=== PATIENT | female | born 1990 | race Caucasian/White ===

== ENCOUNTER → 2020-07-06 17:40 | Outpatient (BNVA) | payer SELFPAY | PROVIDERS: Visit Provider Nurse Practitioner Family | DX: M54.9 Dorsalgia, unspecified (principal); R10.31 Right lower quadrant pain | CPT/HCPCS: 81000 ==

== ENCOUNTER 2021-10-04 06:00 | Outpatient (RCR) | payer OTHER, MEDICAID, SELFPAY | END 2021-10-29 23:59 | disposition home or self-care (01) | LOC: MPT 06:00 | PROVIDERS: Visit Provider Family Medicine | DX: M99.05 Segmental and somatic dysfunction of pelvic region (principal) | CPT/HCPCS: 97110; 97140; 97161; 97530 ==

== ENCOUNTER 2022-01-24 09:36 | Outpatient (CLI) | payer OTHER, SELFPAY ==
--- NOTE | 2022-01-24 09:30 | MR_ITS ---
WS: [id number] MRI LUMBAR SPINE NONCONTRAST TECHNIQUE: Sagittal T1, T2 and STIR imaging. Axial T1 and T2 imaging. CLINICAL INFORMATION: M54.9 - Dorsalgia, unspecified COMPARISON: None. FINDINGS: Mild lumbar curve. No acute compression. No high-grade central canal stenosis. L1-L2: Normal. L2-L3: Normal. L3-L4: Mild annular bulging. Slight effacement of ventral thecal sac. Mild narrowing of the subarticu lar recess bilaterally. Mild facet arthropathy. Mild LEFT foraminal narrowing. L4-L5: Mild annular bulging with slight effacement of ventral thecal sac. Slight narrowing of the LEF T subarticular recess. Mild facet arthropathy. Spinal canal is patent. Mild LEFT greater than RIGHT f oraminal narrowing. L5-S1: Mild disc bulging with osteophytic ridging. Slight effacement of ventral thecal sac. Foramen a re patent. Mild facet arthropathy. Visualized pelvic bony structures: Normal. Paravertebral soft tissues: Normal. MR/MR lumbar spine wo con* [id number] IMPRESSION: 1. Mild lumbar curve. No acute compression. No high-grade central canal stenos is. 2. Mild facet arthropathy L3-L5. 3. Narrowing of the Subarticular recess bilaterally L3-L4 and LEFT L4-L5. Encr oachment on the traversing bilateral L4 and LEFT L5 nerve roots respectively. 4. Mild bilateral L4-L5 foraminal narrowing. 5. No other significant findings.
--- NOTE | 2022-01-24 11:45 | MR_ITS ---
WS: [id number] MRI HEAD WITHOUT CONTRAST TECHNIQUE: Sagittal T1, T2 axial, T2 axial FLAIR, axial and coronal T1 images, axial susceptibility w eighted imaging, axial diffusion weighted images, and coronal T2 images were obtained. CLINICAL INFORMATION: D49.6 - Neoplasm of unspecified behavior of brain COMPARISON: None. FINDINGS: No evidence of restricted diffusion to suggest acute ischemia. T2 hyperintense lesion in the RIGHT mi ddle cerebellar peduncle involving the RIGHT aspect of the baldev and brainstem. This extends into the RIGHT cerebellopontine angle. This measures approximately 1.7 x 1.6 x 1.9 cm AP by transverse by cran iocaudal. Mild localized mass effect. 4th ventricle remains patent. Contrast not administered. No marina dence of restricted diffusion within the mass lesion. Increased signal on ADC. No hemosiderin on susceptibly weighted images. Normal optic chiasm and pituitary infundibulum. Tempor al lobes and hippocampal formations are normal in appearance. Moderate mucosal thickening RIGHT maxil fay sinus. Paranasal sinuses are otherwise well aerated. Mastoid air cells are well aerated. Normal vascular flow voids at the skull base. MR/MR head wo con* [id number] IMPRESSION: 1. T2 hyperintense lesion measures approximately 1.7 x 1.6 x 1.9 cm involving the RIGHT middle cerebellar peduncle with involvement of the baldev and brainstem . Gadolinium not administered today. 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 However, demyelinating d isease such as tumefactive MS is an additional consideration and should be excl uded. Recommend follow-up with gadolinium. 2. No other suspicious intracranial signal abnormalities. 3. No hydrocephalus. 4th ventricle is patent. 4. No hemosiderin on susceptibly weighted images. 5. Moderate mucosal thickening RIGHT maxillary sinus.
== END 2022-01-24 09:37 | disposition home or self-care (01) ==
PROVIDERS: PCP Family Medicine; Visit Provider Family Medicine
DX: M54.50 Low back pain, unspecified (principal); R20.0 Anesthesia of skin; D49.6 Neoplasm of unspecified behavior of brain; M47.816 Spondylosis without myelopathy or radiculopathy, lumbar region
CPT/HCPCS: 70551; 72148

== ENCOUNTER → 2022-02-01 13:35 | Outpatient (BNVA) | payer OTHER, SELFPAY | PROVIDERS: PCP Family Medicine; Referring Provider Nurse Practitioner Family; Visit Provider Physician Assistant | DX: M54.50 Low back pain, unspecified (principal); M47.897 Other spondylosis, lumbosacral region; M77.9 Enthesopathy, unspecified; M47.818 Spondylosis without myelopathy or radiculopathy, sacral and sacrococcygeal region | CPT/HCPCS: 72110; 99204 ==

== ENCOUNTER → 2022-02-28 10:15 | Outpatient (BNVA) | payer OTHER, MEDICAID, SELFPAY | PROVIDERS: PCP Family Medicine; Visit Provider Family Medicine | DX: M54.2 Cervicalgia (principal); G89.29 Other chronic pain; M47.818 Spondylosis without myelopathy or radiculopathy, sacral and sacrococcygeal region; Z13.1 Encounter for screening for diabetes mellitus | CPT/HCPCS: 72040; 80053; 85025; 85651; 86038; 86140 ==

== ENCOUNTER 2022-03-25 16:58 | Emergency (ER) | payer OTHER, MEDICAID, SELFPAY ==
[2022-03-25 17:22] VITALS: BP 134/93; PULSE 84; RESP 15; TEMP 37; O2SAT 98; BMI 29.0
--- NOTE | 2022-03-25 17:36 | W.ED.GENADLT ---
HPI - General Adult General: Chief complaint: General Medical Stated complaint: Tongue/throat numbness, speech problem Time Seen by Provider: 03/25/22 17:31 History of Present Illness: Patient is a 32-year-old female with prior history unilateral facial palsy, prior brainstem tumor during presenting to the emergency room with sudden onset of right-sided facial palsy and slurring of speech today. In addition, patient reports no numbness for the last 2-month. Patient went to see an ENT provider 2-month ago however she tells me that the doctors could not figure out with wrong with her. Patient denies any focal weakness in the arms or legs, diplopia, amaurosis fugax, any history of autoimmune diseases. Patient tells me that she had a prior brainstem tumor from previous that resolved after the . Denies any drooling, respiratory distress, difficulty breathing difficulty eating, or other complaints at this time. Onset:1 day Duration:ongoing Location: home Severity:mild/moderate Associated symptoms: Deny chest pain, dyspnea, nausea, rash, palpitations or vomiting Review of Systems Const: Denies: fever(s) or chills Eyes: Denies: change in vision ENMT: Denies: mouth pain Card: Denies: chest pain or palpitations Resp: Denies: dyspnea or non-productive cough GI: Denies: abdominal pain, nausea, vomiting or diarrhea : Denies: dysuria Musc: Denies: extremity pain Skin/Breast: Denies: rash or new lesions Neuro: Reports: other (+R sided facial droop and slurring of speech); Denies: weakness in extremities Psych: Reports: other (Normal mood) Edilson/Lymph: Denies: easy bruising [facility] ED PFSH: Medical History (Updated 03/25/22 @ 18:31 by Natacha López MD) Facial palsy Social History Smoking and tobacco status: former smoker Alcohol intake: never Female Reproductive History: Date of last menstrual period: 06/22/20 Spontaneous abortions: No Physical Exam Const: COMMON NORMALS: alert HENMT: COMMON NORMALS: atraumatic HEAD & SCALP: atraumatic MOUTH: moist mucous membranes not abnormal Eye: COMMON NORMALS: EOMs intact bilaterally and conjunctivae normal CONJUNCTIVA: Yes conjunctivae normal Neck/C-Spine: COMMON NORMALS: full ROM and supple Resp: COMMON NORMALS: normal respiratory effort and clear to auscultation bilaterally AUSCULTATION: clear to auscultation bilaterally Cardio: COMMON NORMALS: regular rate RATE: regular rate GI: COMMON NORMALS: Soft to palpation and non-tender PALPATION: Yes Soft to palpation Extremity: COMMON NORMALS: full ROM Neuro: SENSORIUM/ORIENTATION: Yes alert MOTOR EXAM: No Abnormal motor strength present and Other motor observations present (no focal motor deficits) OTHER: Mental status? Awake, alert, and oriented to self, year, month, location, and situation.? Following simple axial and appendicular commands.? Has appropriate fund of knowledge, comprehension, and insight.? Able to recall and understands pertinent aspects of medical history and current treatment status.? ? Language? Speech is fluent without word-finding difficulties.? Intact naming, expression, medical receptionist assistant, and repetition.? ? Cranial nerves? 2,3,4,6: PERRL, EOMI with no nystagmus. 5: Intact sensation to light touch, symmetric? 7: R sided upper and lower facial droop 8: Hearing grossly intact.? 9,10: Normal palate movement.? 11: Normal strength in trapezius bilaterally 12: Tongue protrudes midline.? ? Motor examination? Normal bulk & tone. Strength as follows (R/L): Delts (5/5), Biceps (5/5), Triceps (5/5), Wrist ext (5/5), hip flexors (5/5), plantarflexors (5/5), dorsiflexors (5/5). ? Sensation? Light Touch: Grossly intact and equal in upper and lower extremities bilaterally? Romberg: Negative.? Distal joint position sense intact ? Coordination? Fruktw-df-stxu-finger movements intact without dysmetria or past-pointing.? Rapid fingertaps: preserved amplitude without decriment.? No tremor, myoclonus or truncal ataxia.? ? Gait/stance? Steady, normal narrow base gait with appropriate arm swing and turning.? Tandem gait without hesitation or loss of balance. Psych: COMMON NORMALS: speech normal SPEECH: Yes normal speech MOOD & AFFECT: Yes euthymic mood Course Vital Signs: Vital signs: Vital Signs Temperature 98.6 F 03/25/22 17:46 Pulse Rate 76 03/25/22 18:48 Respiratory Rate 16 03/25/22 18:48 Blood Pressure 117/82 03/25/22 18:48 Pulse Oximetry 95 03/25/22 18:48 MDM - General Adult Medical Decision Making 32-year-old female presents emergency room for 1 day of right-sided facial palsy consistent with Parr's palsy. No other focal neurological findings on exam. She received 50 mg of steroids in the ED. CT head did not show any similar pulm lesion previously noted. CTA head and Acute findings with no signs of dissection. Patient is given a steroid packet for 1 week, artificial tears, and affected eye is taped. I have given patient follow up with our catalytic case operator to be seen by our outpatient Neurology for parr's palsy evaluation. Patient aware of a call from our catalytic case operator to schedule for appointment(s) and verbalizes understanding of the importance of following up. Rx steriod x 7 days, artificial tears PRN eye pain Disposition: Discharge. Patient counseled regarding diagnostic impression, treatment plan. Patient given ED strict return precautions to return for continuation, worsening, or development of new symptoms. Instructed to f/u w/ PCP regarding symptoms today. Patient verbalized understanding. Lab Data : 03/25/22 17:43 03/25/22 17:[address] 03/25/22 17:59 IMPRESSION: 1. No acute abnormality of the brain. 2. Streak artifact in the posterior fossa the limits evaluation, the mass noted on the prior MRI in the baldev is not visualized on the current non contrasted CT scan. Follow-up MRI of the brain without and with contrast may be obtained if it will change clinical management, and the patient has no contraindications. Head/Neck CTA 03/25/22 17:59 IMPRESSION: 1. Unremarkable CT angiogram of the intracranial arteries. No occlusion, thrombosis, stenosis, extravasation, dissection, or aneurysm. 2. The mass noted on the prior MRI in the baldev is not visualized on the CT angiogram. Follow-up MRI of the brain without and with contrast may be obtained if it will change clinical management, and the patient has no contraindications. 3. Mild mucoperiosteal thickening in the the right maxillary sinus, decreased compared with 01/24/2022. IMPRESSION: Unremarkable CT angiogram of the cervical arteries. No occlusion, thrombosis, stenosis, extravasation, dissection, or aneurysm. REFERENCES: NASCET CRITERIA. The degree of internal carotid artery stenosis is based on NASCET criteria. Normal is no stenosis. Mild is less than 50% stenosis. Moderate is 50-69% stenosis. Severe is 70% to 99% stenosis. Total occlusion is no detectable patent lumen. Laboratory Results WBC 6.6 10^3/uL (4.0-10.0) 03/25/22 17:43 RBC 4.86 10^6/uL (4.1-5.3) 03/25/22 17:43 Hgb 13.6 g/dL (11.5-15.3) 03/25/22 17:43 Hct 41.4 % (37.0-47.0) 03/25/22 17:43 MCV 85.2 fl (81-99) 03/25/22 17:43 MCH 28.0 pg (28.0-34.0) 03/25/22 17:43 MCHC 32.9 g/dL (30.0-36.0) 03/25/22 17:43 RDW 13.2 % (12.1-15.1) 03/25/22 17:43 Plt Count 238 10^3/cmm (130-400) 03/25/22 17:43 MPV 11.7 fL (7.4-10.4) H 03/25/22 17:43 Neut % (Auto) 59.7 % 03/25/22 17:43 Lymph % (Auto) 30.3 % 03/25/22 17:43 [place] % (Auto) 7.7 % 03/25/22 17:43 Eos % (Auto) 1.5 % 03/25/22 17:43 Baso % (Auto) 0.5 % 03/25/22 17:43 Neut # (Auto) 3.95 10^3/uL (1.8-7.7) 03/25/22 17:43 Lymph # (Auto) 2.0 10^3/uL (0.8-4.8) 03/25/22 17:43 [place] # (Auto) 0.5 10^3/uL (0.2-0.9) 03/25/22 17:43 Eos # (Auto) 0.1 10^3/uL (0.0-0.8) 03/25/22 17:43 Baso # (Auto) 0.0 10^3/uL (0.0-0.1) 03/25/22 17:43 Nucleated RBC % (auto) 0 % 03/25/22 17:43 Nucleated RBCs # 0.0 /100WBC 03/25/22 17:43 Sodium 140 mmol/L (136-145) 03/25/22 17:43 Potassium 4.1 mmol/L (3.5-5.1) 03/25/22 17:43 Chloride 101 mmol/L (98-107) 03/25/22 17:43 Carbon Dioxide 27 mmol/L (22-29) 03/25/22 17:43 Anion Gap 16.1 (5-19) 03/25/22 17:43 BUN 12 mg/dL (6-20) 03/25/22 17:43 Creatinine 0.7 mg/dL (0.5-0.9) 03/25/22 17:43 GFR Calculation 97.0 mL/min (90-130) 03/25/22 17:43 Glucose 103 mg/dL (65-115) 03/25/22 17:43 Calculated Osmolality 290 mOsm/kg (285-295) 03/25/22 17:43 Calcium 9.8 mg/dL (8.5-10.5) 03/25/22 17:43 Imaging Data Other Imaging: Radiologist's impression: [address] [address] [address] Scan Report Signed Patient: Fiorella Bridges Unit #: [id number] : 1990 Age/Sex: 32 / F ADM Date: 03/25/22 Loc: ER Room/Bed: Attending Dr: Ordering Provider/Ordering MD: Natacha López MD Date of Service: 03/25/22 Procedure(s): CT angio headneck* [id number] Accession Number(s): [id number] Report Number: [id number] PROCEDURE INFORMATION: Exam: CT Angiography Head With Contrast, Arteriography Exam date and time: 03/25/2022 6:20 PM Age: 32 years old Clinical indication: Pain; Mass, lump, or swelling in head; Other: Throat soreness; Additional info: L sided facial welling and droop TECHNIQUE: Imaging protocol: Computed tomography angiography of the head with contrast. Exam focused on the arteries. 3D rendering (Not supervised by radiologist): MIP and/or 3D reconstructed images were created by the technologist. Radiation optimization: All CT scans at this facility use at least one of these dose optimization techniques: automated exposure control; mA and/or kV adjustment per patient size (includes targeted exams where dose is matched to clinical indication); or iterative reconstruction. Contrast material: OMNIPAQUE 300; Contrast volume: 95 ml; Contrast route: INTRAVENOUS (IV);? COMPARISON: 1. CT head wo con* [id number] 03/25/2022 6:15 PM 2. MR head wo con* [id number] 01/24/2022 10:13 AM RADIATION DOSE METRICS: Total DLP (mGy-cm): 2100.88 FINDINGS: ANTERIOR CIRCULATION: Right internal carotid artery: Unremarkable. No occlusion, thrombosis, stenosis, extravasation, dissection, or aneurysm. Right middle cerebral artery: Unremarkable. No occlusion, thrombosis, stenosis, extravasation, dissection, or aneurysm. Right anterior cerebral artery: Unremarkable. No occlusion, thrombosis, stenosis, extravasation, dissection, or aneurysm. Anterior communicating artery: The anterior communicating artery is unremarkable. Left internal carotid artery: Unremarkable. No occlusion, thrombosis, stenosis, extravasation, dissection, or aneurysm. Left middle cerebral artery: Unremarkable. No occlusion, thrombosis, stenosis, extravasation, dissection, or aneurysm. Left anterior cerebral artery: Unremarkable. No occlusion, thrombosis, stenosis, extravasation, dissection, or aneurysm. POSTERIOR CIRCULATION: Right vertebral artery: Unremarkable. No occlusion, thrombosis, stenosis, extravasation, dissection, or aneurysm. Left vertebral artery: Unremarkable. No occlusion, thrombosis, stenosis, dissection, or aneurysm. Basilar artery: Unremarkable. No occlusion, thrombosis, stenosis, extravasation, dissection, or aneurysm. Right posterior cerebral artery: Unremarkable. No occlusion, thrombosis, stenosis, dissection, or aneurysm. Left posterior cerebral artery: Unremarkable. No occlusion, thrombosis, stenosis, extravasation, dissection, or aneurysm. Right posterior communicating artery: The right posterior communicating artery is unremarkable. Left posterior communicating artery: The left posterior communicating artery is unremarkable. Veins: The dural sinuses and deep cerebral veins are patent. Brain: The mass noted on the prior MRI in the baldev is not visualized on the CT angiogram. Cerebral ventricles: No ventriculomegaly. Orbital cavities: Globes and lenses, extraocular muscles, and optic nerves are intact bilaterally. No acute intraorbital abnormality. Mastoid air cells: Mastoid air cells are clear bilaterally. Paranasal sinuses: Mild mucoperiosteal thickening in the the right maxillary sinus, decreased compared with 01/24/2022. Other paranasal sinuses are clear. Nasal cavity: The patient has a left nasal piercing. Bones/joints: Unremarkable. No acute fracture. Soft tissues: No acute abnormality of the extracranial soft tissues. PROCEDURE INFORMATION: Exam: CT Angiography Neck With Contrast Exam date and time: 03/25/2022 6:20 PM Age: 32 years old Clinical indication: Pain; Mass, lump, or swelling in head; Other: Throat soreness; Additional info: L sided facial welling and droop TECHNIQUE: Imaging protocol: Computed tomography angiography of the neck with contrast. 3D rendering (Not supervised by radiologist): MIP and/or 3D reconstructed images were created by the technologist. Radiation optimization: All CT scans at this facility use at least one of these dose optimization techniques: automated exposure control; mA and/or kV adjustment per patient size (includes targeted exams where dose is matched to clinical indication); or iterative reconstruction. Contrast material: OMNIPAQUE 300; Contrast volume: 95 ml; Contrast route: INTRAVENOUS (IV);? COMPARISON: CR XR cervical spine 3V* [id number] 02/28/2022 10:31 AM RADIATION DOSE METRICS: Total DLP (mGy-cm): 2100.88 FINDINGS: Right common carotid artery: Unremarkable. No occlusion, thrombosis, stenosis, extravasation, dissection, or aneurysm. Right internal carotid artery: Unremarkable. No occlusion, thrombosis, stenosis, extravasation, dissection, or aneurysm. Right external carotid artery: Unremarkable. No occlusion, thrombosis, stenosis, extravasation, dissection, or aneurysm. Left common carotid artery: Unremarkable. No occlusion, thrombosis, stenosis, extravasation, dissection, or aneurysm. Left internal carotid artery: Unremarkable. No occlusion, thrombosis, stenosis, extravasation, dissection, or aneurysm. Left external carotid artery: Unremarkable. No occlusion, thrombosis, stenosis, extravasation, dissection, or aneurysm. Right vertebral artery: Unremarkable. No occlusion, thrombosis, stenosis, extravasation, dissection, or aneurysm. Left vertebral artery: Unremarkable. No occlusion, thrombosis, stenosis, extravasation, dissection, or aneurysm. Brachiocephalic artery: Unremarkable. No occlusion, thrombosis, stenosis, extravasation, dissection, or aneurysm. Subclavian arteries: Unremarkable. No occlusion, thrombosis, stenosis, extravasation, dissection, or aneurysm. Aorta: Visualized aortic arch is unremarkable. No occlusion, thrombosis, stenosis, extravasation, dissection, or aneurysm. Lymph nodes: No lymphadenopathy. Soft tissues: No soft tissue swelling. No radiopaque foreign body. Bones/joints: No acute fracture. Lungs: Visualized lungs are clear. CT/CT angio headneck* [id number] IMPRESSION: 1. Unremarkable CT angiogram of the intracranial arteries. No occlusion, thrombosis, stenosis, extravasation, dissection, or aneurysm. 2. The mass noted on the prior MRI in the baldev is not visualized on the CT angiogram. Follow-up MRI of the brain without and with contrast may be obtained if it will change clinical management, and the patient has no contraindications. 3. Mild mucoperiosteal thickening in the the right maxillary sinus, decreased compared with 01/24/2022. ? ? IMPRESSION: Unremarkable CT angiogram of the cervical arteries. No occlusion, thrombosis, stenosis, extravasation, dissection, or aneurysm. ? REFERENCES: NASCET CRITERIA. The degree of internal carotid artery stenosis is based on NASCET criteria. Normal is no stenosis. Mild is less than 50% stenosis. Moderate is 50-69% stenosis. Severe is 70% to 99% stenosis. Total occlusion is no detectable patent lumen. ? Dictated By: Ivanna Jack MD Signed By: Ivanna Jack MD Signed Date/Time: 03/25/221910 DD/ [address] [address] [address] Scan Report Signed Patient: Fiorella Bridges Unit #: [id number] : 1990 Age/Sex: 32 / F ADM Date: 03/25/22 Loc: ER Room/Bed: Attending Dr: Ordering Provider/Ordering MD: Natacha López MD Date of Service: 03/25/22 Procedure(s): CT head wo con* [id number] Accession Number(s): [id number] Report Number: [id number] PROCEDURE INFORMATION: Exam: CT Head Without Contrast Exam date and time: 03/25/2022 6:15 PM Age: 32 years old Clinical indication: Weakness, facial; Patient HX: Patient claim a brain tumor at brain stem x 6 years; Additional info: Facial droop TECHNIQUE: Imaging protocol: Computed tomography of the head without contrast. Sagittal and coronal reformatted images were created and reviewed. Radiation optimization: All CT scans at this facility use at least one of these dose optimization techniques: automated exposure control; mA and/or kV adjustment per patient size (includes targeted exams where dose is matched to clinical indication); or iterative reconstruction. COMPARISON: MR head wo con* [id number] 01/24/2022 10:13 AM RADIATION DOSE METRICS: Total DLP (mGy-cm): 770.46 FINDINGS: Brain: No acute intracranial hemorrhage. No acute infarct. Streak artifact in the posterior fossa the limits evaluation, the mass noted on the prior MRI in the baldev is not visualized on the current non contrasted CT scan. No midline shift. No extra-axial fluid collections. Alonzo-white matter differentiation is unremarkable.? No evidence for Chiari 1 malformation. Cerebral ventricles: No hydrocephalus. Paranasal sinuses: Visualized paranasal sinuses are clear. Mastoid air cells: Visualized mastoid air cells are clear. Orbital cavities: No acute abnormality in the visualized orbits. Bones/joints: No acute fracture. Soft tissues: The extracranial soft tissues are unremarkable. CT/CT head wo con* [id number] IMPRESSION: 1. No acute abnormality of the brain. 2. Streak artifact in the posterior fossa the limits evaluation, the mass noted on the prior MRI in the baldev is not visualized on the current non contrasted CT scan. Follow-up MRI of the brain without and with contrast may be obtained if it will change clinical management, and the patient has no contraindications. ? Dictated By: Ivanna Jack MD Signed By: Ivanna Jack MD Signed Date/Time: 03/25/221900 DD/ 14 Discharge Plan Discharge Patient Disposition: Home Clinical Impression: Facial palsy Condition: Stable Prescriptions: New prednisone 50 mg tablet 50 mg PO DAILY PRN (Reason: parr palsy) 7 Days Qty: 7 0RF artifi.tears(hypromellose)(PF) 0.3 % drops 1 drp ophthalmic (eye) .q1hr PRN (Reason: bells palsy) 7 Days Qty: 10 0RF No Action cyclobenzaprine 5 mg tablet 5 mg PO BID PRN (Reason: muscle spasm) 30 Days Qty: 30 1RF fluticasone propionate [Flonase Allergy Relief] 50 mcg/actuation spray,suspension 1 spray intranasal BID Qty: 18.2 0RF Rx Instructions: administer into each nostril tizanidine 2 mg tablet 2 mg PO Q8H PRN (Reason: muscle spasticity) 30 Days Qty: 60 0RF Discharge Orders: Discharge ED (Routine); Ordered 03/25/22 Ordered By: Natacha López Referrals: Karime Marcelo MD [Primary Care Provider] - Discharge Diet: Advance as tolerated Discharge Activity: Increase activity as tolerated Patient Instructions: Parr Palsy (ED) Activity Restrictions/Additional Instructions: Please use artificial tears daily. Please continue using steroids. Please tap your affected eye shut and do not use a eye cover. Our catalytic case operator will have you follow-up with Neurology in the next few days. You would be expected to have a phone call with our catalytic case operator who will put you on the schedule. You can expect a call from us in the next 2-3 days. If you don't hear from us, call us back in the emergency room at [phone]. Coding Level of Care Code ED Senior Marketing Coordinator for Omar Sullivan Exam Comprehensive
[2022-03-25 17:46] VITALS: BP 134/93; PULSE 84; RESP 15; TEMP 37; O2SAT 98
--- NOTE | 2022-03-25 17:59 | CTR_ITS ---
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 Sagittal and coronal reformatted images were created and reviewed. Radiation optimization: All CT scans at this facility use at least one of these dose optimization techniques: automated exposure control; mA and/or kV adjustment per patient size (includes targeted exams where dose is matched to clinical indication); or iterative reconstruction. COMPARISON: MR head wo con* [id number] 01/24/2022 10:13 AM RADIATION DOSE METRICS: Total DLP (mGy-cm): 770.46 FINDINGS: Brain: No acute intracranial hemorrhage. No acute infarct. Streak artifact in the posterior fossa the limits evaluation, the mass noted on the prior MRI in the baldev is not visualized on the current non contrasted CT scan. No midline shift. No extra-axial fluid collections. Alonzo-white matter differentiation is unremarkable. No evidence for Chiari 1 malformation. Cerebral ventricles: No hydrocephalus. Paranasal sinuses: Visualized paranasal sinuses are clear. Mastoid air cells: Visualized mastoid air cells are clear. Orbital cavities: No acute abnormality in the visualized orbits. Bones/joints: No acute fracture. Soft tissues: The extracranial soft tissues are unremarkable. CT/CT head wo con* [id number] IMPRESSION: 1. No acute abnormality of the brain. 2. Streak artifact in the posterior fossa the limits evaluation, the mass noted on the prior MRI in the baldev is not visualized on the current non contrasted CT scan. Follow-up MRI of the brain without and with contrast may be obtained if it will change clinical management, and the patient has no contraindications.
--- NOTE | 2022-03-25 17:59 | CTR_ITS ---
PROCEDURE INFORMATION: Exam: CT Angiography Head With Contrast, Arteriography Exam date and time: 03/25/2022 6:20 PM Age: 32 years old Clinical indication: Pain; Mass, lump, or swelling in head; Other: Throat soreness; Additional info: L sided facial welling and droop TECHNIQUE: Imaging protocol: Computed tomography angiography of the head with contrast. Exam focused on the arteries. 3D rendering (Not supervised by radiologist): MIP and/or 3D reconstructed images were created by the technologist. Radiation optimization: All CT scans at this facility use at least one of these dose optimization techniques: automated exposure control; mA and/or kV adjustment per patient size (includes targeted exams where dose is matched to clinical indication); or iterative reconstruction. Contrast material: OMNIPAQUE 300; Contrast volume: 95 ml; Contrast route: INTRAVENOUS (IV); COMPARISON: 1. CT head wo con* [id number] 03/25/2022 6:15 PM 2. MR head wo con* [id number] 01/24/2022 10:13 AM RADIATION DOSE METRICS: Total DLP (mGy-cm): 2100.88 FINDINGS: ANTERIOR CIRCULATION: Right internal carotid artery: Unremarkable. No occlusion, thrombosis, stenosis, extravasation, dissection, or aneurysm. Right middle cerebral artery: Unremarkable. No occlusion, thrombosis, stenosis, extravasation, dissection, or aneurysm. Right anterior cerebral artery: Unremarkable. No occlusion, thrombosis, stenosis, extravasation, dissection, or aneurysm. Anterior communicating artery: The anterior communicating artery is unremarkable. Left internal carotid artery: Unremarkable. No occlusion, thrombosis, stenosis, extravasation, dissection, or aneurysm. Left middle cerebral artery: Unremarkable. No occlusion, thrombosis, stenosis, extravasation, dissection, or aneurysm. Left anterior cerebral artery: Unremarkable. No occlusion, thrombosis, stenosis, extravasation, dissection, or aneurysm. POSTERIOR CIRCULATION: Right vertebral artery: Unremarkable. No occlusion, thrombosis, stenosis, extravasation, dissection, or aneurysm. Left vertebral artery: Unremarkable. No occlusion, thrombosis, stenosis, dissection, or aneurysm. Basilar artery: Unremarkable. No occlusion, thrombosis, stenosis, extravasation, dissection, or aneurysm. Right posterior cerebral artery: Unremarkable. No occlusion, thrombosis, stenosis, dissection, or aneurysm. Left posterior cerebral artery: Unremarkable. No occlusion, thrombosis, stenosis, extravasation, dissection, or aneurysm. Right posterior communicating artery: The right posterior communicating artery is unremarkable. Left posterior communicating artery: The left posterior communicating artery is unremarkable. Veins: The dural sinuses and deep cerebral veins are patent. Brain: The mass noted on the prior MRI in the baldev is not visualized on the CT angiogram. Cerebral ventricles: No ventriculomegaly. Orbital cavities: Globes and lenses, extraocular muscles, and optic nerves are intact bilaterally. No acute intraorbital abnormality. Mastoid air cells: Mastoid air cells are clear bilaterally. Paranasal sinuses: Mild mucoperiosteal thickening in the the right maxillary sinus, decreased compared with 01/24/2022. Other paranasal sinuses are clear. Nasal cavity: The patient has a left nasal piercing. Bones/joints: Unremarkable. No acute fracture. Soft tissues: No acute abnormality of the extracranial soft tissues. PROCEDURE INFORMATION: Exam: CT Angiography Neck With Contrast Exam date and time: 03/25/2022 6:20 PM Age: 32 years old Clinical indication: Pain; Mass, lump, or swelling in head; Other: Throat soreness; Additional info: L sided facial welling and droop TECHNIQUE: Imaging protocol: Computed tomography angiography of the neck with contrast. 3D rendering (Not supervised by radiologist): MIP and/or 3D reconstructed images were created by the technologist. Radiation optimization: All CT scans at this facility use at least one of these dose optimization techniques: automated exposure control; mA and/or kV adjustment per patient size (includes targeted exams where dose is matched to clinical indication); or iterative reconstruction. Contrast material: OMNIPAQUE 300; Contrast volume: 95 ml; Contrast route: INTRAVENOUS (IV); COMPARISON: CR XR cervical spine 3V* [id number] 02/28/2022 10:31 AM RADIATION DOSE METRICS: Total DLP (mGy-cm): 2100.88 FINDINGS: Right common carotid artery: Unremarkable. No occlusion, thrombosis, stenosis, extravasation, dissection, or aneurysm. Right internal carotid artery: Unremarkable. No occlusion, thrombosis, stenosis, extravasation, dissection, or aneurysm. Right external carotid artery: Unremarkable. No occlusion, thrombosis, stenosis, extravasation, dissection, or aneurysm. Left common carotid artery: Unremarkable. No occlusion, thrombosis, stenosis, extravasation, dissection, or aneurysm. Left internal carotid artery: Unremarkable. No occlusion, thrombosis, stenosis, extravasation, dissection, or aneurysm. Left external carotid artery: Unremarkable. No occlusion, thrombosis, stenosis, extravasation, dissection, or aneurysm. Right vertebral artery: Unremarkable. No occlusion, thrombosis, stenosis, extravasation, dissection, or aneurysm. Left vertebral artery: Unremarkable. No occlusion, thrombosis, stenosis, extravasation, dissection, or aneurysm. Brachiocephalic artery: Unremarkable. No occlusion, thrombosis, stenosis, extravasation, dissection, or aneurysm. Subclavian arteries: Unremarkable. No occlusion, thrombosis, stenosis, extravasation, dissection, or aneurysm. Aorta: Visualized aortic arch is unremarkable. No occlusion, thrombosis, stenosis, extravasation, dissection, or aneurysm. Lymph nodes: No lymphadenopathy. Soft tissues: No soft tissue swelling. No radiopaque foreign body. Bones/joints: No acute fracture. Lungs: Visualized lungs are clear. CT/CT angio headneck* [id number] IMPRESSION: 1. Unremarkable CT angiogram of the intracranial arteries. No occlusion, thrombosis, stenosis, extravasation, dissection, or aneurysm. 2. The mass noted on the prior MRI in the baldev is not visualized on the CT angiogram. Follow-up MRI of the brain without and with contrast may be obtained if it will change clinical management, and the patient has no contraindications. 3. Mild mucoperiosteal thickening in the the right maxillary sinus, decreased compared with 01/24/2022. IMPRESSION: Unremarkable CT angiogram of the cervical arteries. No occlusion, thrombosis, stenosis, extravasation, dissection, or aneurysm. REFERENCES: NASCET CRITERIA. The degree of internal carotid artery stenosis is based on NASCET criteria. Normal is no stenosis. Mild is less than 50% stenosis. Moderate is 50-69% stenosis. Severe is 70% to 99% stenosis. Total occlusion is no detectable patent lumen.
[2022-03-25 18:07] LABS: Basophils % 0.5 %; Eosinophils # 0.1 10^3/uL (0.0-0.8); Eosinophils % 1.5 %; Hematocrit 41.4 % (37.0-47.0); Hemoglobin 13.6 g/dL (11.5-15.3); Lymphocytes % 30.3 %; Mean Corpuscular HGB Conc 32.9 g/dL (30.0-36.0); Mean Corpuscular Volume 85.2 fl (81-99); Mean Platelet Volume 11.7 fL (7.4-10.4); Monocytes # 0.5 10^3/uL (0.2-0.9); Monocytes % 7.7 %; Neutrophils # 3.95 10^3/uL (1.8-7.7); Neutrophils % 59.7 %; Nucleated Red Blood Cells % 0 %; Platelet Count 238 10^3/cmm (130-400); Red Blood Count 4.86 10^6/uL (4.1-5.3); Red Cell Distribution Width 13.2 % (12.1-15.1); White Blood Count 6.6 10^3/uL (4.0-10.0)
[2022-03-25 18:18] LABS: Anion Gap 16.1 (5-19); Blood Urea Nitrogen 12 mg/dL (6-20); Calcium 9.8 mg/dL (8.5-10.5); Carbon Dioxide 27 mmol/L (22-29); Chloride 101 mmol/L (98-107); Glucose 103 mg/dL (65-115); Osmolality Calculated 290 mOsm/kg (285-295); Potassium 4.1 mmol/L (3.5-5.1); Sodium 140 mmol/L (136-145)
[2022-03-25] MEDS: iohexol 300 mg/mL 100 mL Btl IV (18:36)
[2022-03-25 18:48] VITALS: BP 117/82; PULSE 76; RESP 16; O2SAT 95
[2022-03-25] MEDS: predniSONE 20 mg Tablet 60 MG PO (19:40)
[2022-03-25 19:52] VITALS: BP 108/81; PULSE 67; RESP 16; O2SAT 99
--- NOTE | 2022-03-26 16:46 | DCPLANNER ---
Addendum entered by Margie Hurt 06/22/22 11:35: Patient had a follow up appointment for patient with neurology on 05.04.22 - patient did attend appointment. Addendum entered by Margie Hurt 04/05/22 15:49: Patient has a follow up appointment scheduled for Wednesday, May 04, 2022 at 11:[address] Flaherty. Clinic will call patient with appointment information. Original Note: manager banking had message to schedule a follow up appointment for patient with neurology. manager banking sent patients information to the front office staff of neurology. Patients information will be printed and reviewed. Clinic will call patient with appointment information.
== END 2022-03-25 19:53 | disposition home or self-care (01) ==
PROVIDERS: Emergency Provider Emergency Medicine; PCP Family Medicine
DX: G51.0 Bell's palsy (principal)
CPT/HCPCS: 70450; 70496; 70498; 80048; 85025; 99283; J7512; Q9967

== ENCOUNTER 2022-04-05 06:00 | Outpatient (RCR) | payer OTHER, MEDICAID, SELFPAY | END 2022-04-28 23:59 | disposition home or self-care (01) | LOC: MPT 06:00 | PROVIDERS: PCP Family Medicine; Referring Provider Physician Assistant; Visit Provider Physician Assistant | DX: M54.50 Low back pain, unspecified (principal) | CPT/HCPCS: 97110; 97140; 97161; 97530 ==

== ENCOUNTER 2022-08-25 18:47 | Emergency (ER) | payer OTHER, MEDICAID, SELFPAY ==
[2022-08-25 19:16] VITALS: BP 118/71; PULSE 60; RESP 15; TEMP 36.6; O2SAT 99
--- NOTE | 2022-08-25 19:39 | CTR_ITS ---
PROCEDURE INFORMATION: Exam: CT Abdomen And Pelvis Without Contrast Exam date and time: 08/25/2022 8:27 PM Age: 32 years old Clinical indication: Abdominal pain; Generalized; Patient HX: Abd pain with tarry stools TECHNIQUE: Imaging protocol: Computed tomography of the abdomen and pelvis without contrast. Radiation optimization: All CT scans at this facility use at least one of these dose optimization techniques: automated exposure control; mA and/or kV adjustment per patient size (includes targeted exams where dose is matched to clinical indication); or iterative reconstruction. COMPARISON: MR lumbar spine wo con* [id number] 01/24/2022 10:50 AM RADIATION DOSE METRICS: Total DLP (mGy-cm): 769.77 FINDINGS: Liver: Normal. No mass. Gallbladder and bile ducts: Normal. No calcified stones. No ductal dilation. Pancreas: Normal. No ductal dilation. Spleen: Normal. No splenomegaly. Adrenal glands: Normal. No mass. Kidneys and ureters: Normal. No hydronephrosis. Stomach and bowel: Mild to moderate retained feces. Appendix: Normal appendix. Intraperitoneal space: Unremarkable. No free air. No significant fluid collection. Vasculature: Unremarkable. No abdominal aortic aneurysm. Lymph nodes: Unremarkable. No enlarged lymph nodes. Urinary bladder: Unremarkable as visualized. Reproductive: One or more calcified uterine fibroids. Bones/joints: Unremarkable. No acute fracture. Soft tissues: Unremarkable. CT/CT abdomen pelvis wo con [id number] IMPRESSION: Mild to moderate retained feces.
--- NOTE | 2022-08-25 19:40 | W.ED.ABDPA2 ---
HPI - Abdominal Pain General: Chief Complaint: Abdominal Pain Stated Complaint: Dr Sent\ABD Pain\Dizzy Time Seen by Provider: 08/25/22 19:36 Source: patient Mode of arrival: ambulatory Limitations: no limitations History of Present Illness: 32-year-old female states she been having epigastric abdominal pain over the last 2 days. She states it is a burning pain sometimes radiates into her chest. She states her pain is a 6 out of 10 currently denies any fever denies any vomiting diarrhea denies any worsening or improving factors. Associated Symptoms: Reports nausea; Denies dysuria Related Data: Date of Last Menstrual Period: 08/18/22 Review of Systems Const: Reports: fatigue and malaise Eyes: Denies: blurry vision or eye discomfort ENMT: Denies: throat pain or dental pain Card: Denies: chest pain Resp: Denies: dyspnea GI: Reports: abdominal pain and nausea : Denies: dysuria Musc: Denies: neck pain or back pain Skin/Breast: Denies: rash Neuro: Denies: headache(s) Psych: Denies: depression Edilson/Lymph: Denies: easy bruising All/Imm: Denies: urticaria PFSH ED PFSH: Medical History Facial palsy History of COVID-19 Social History Smoking and tobacco status: former smoker Alcohol intake: never Female Reproductive History: Date of last menstrual period: 08/18/22 Spontaneous abortions: No Physical Exam Const: COMMON NORMALS: no acute distress, patient oriented x3 and healthy appearing HENMT: COMMON NORMALS: normocephalic and atraumatic HEAD & SCALP: normocephalic and atraumatic Eye: COMMON NORMALS: Equal, round and reactive pupils present and EOMs intact bilaterally PUPIL: Yes Equal, round and reactive pupils present Neck/C-Spine: COMMON NORMALS: full ROM and supple Chest: COMMONS NORMALS: normal inspection of the chest and normal palpation of entire chest wall Resp: COMMON NORMALS: normal respiratory effort, No retractions, No use of accessory muscles and clear to auscultation bilaterally AUSCULTATION: clear to auscultation bilaterally Cardio: COMMON NORMALS: regular rate, regular rhythm and No murmurs present (Cardio) RATE: regular rate RHYTHM: regular rhythm GI: COMMON NORMALS: Normal to inspection, nondistended, normoactive bowel sounds present, Soft to palpation, non-tender and no masses PALPATION: Yes Soft to palpation Extremity: COMMON NORMALS: normal to inspection and full ROM Neuro: COMMON NORMALS: patient oriented x3, moves all extremities and no focal motor deficits Psych: COMMON NORMALS: mental status grossly normal, Normal thought process present and cooperative THOUGHT PROCESS: Normal thought process present Skin: COMMON NORMALS: no rashes or lesions noted and no wounds GENERAL SKIN EXAM: no rashes or lesions noted Course Vital Signs: Vital signs: Vital Signs Temperature 97.9 F 08/25/22 19:16 Pulse Rate 60 08/25/22 20:23 Respiratory Rate 14 08/25/22 20:23 Blood Pressure 116/78 08/25/22 20:23 Pulse Oximetry 99 08/25/22 20:23 Oxygen Delivery Me thod 08/25/22 20:23 MDM - Abdominal Pain Medical Decision Making Patient presents here with epigastric abdominal pain likely gastritis her pain resolved here after GI cocktail blood work and CT scan are normal we will start her on Protonix get her follow-up with surgeon. She is return if worsening she understands agrees to plan. Lab Data : 08/25/22 19:58 08/25/22 19:58 Labs/Radiology: Radiology Impressions Abdomen/Pelvis CT 08/25/22 19:39 IMPRESSION: Mild to moderate retained feces. Laboratory Results WBC 5.5 10^3/uL (4.0-10.0) 08/25/22 19:58 RBC 4.46 10^6/uL (4.1-5.3) 08/25/22 19:58 Hgb 12.6 g/dL (11.5-15.3) 08/25/22 19:58 Hct 39.2 % (37.0-47.0) 08/25/22 19:58 MCV 87.9 fl (81-99) 08/25/22 19:58 MCH 28.3 pg (28.0-34.0) 08/25/22 19:58 MCHC 32.1 g/dL (30.0-36.0) 08/25/22 19:58 RDW 14.0 % (12.1-15.1) 08/25/22 19:58 Plt Count 223 10^3/cmm (130-400) 08/25/22 19:58 MPV 10.8 fL (7.4-10.4) H 08/25/22 19:58 Neut % (Auto) 59.4 % 08/25/22 19:58 Lymph % (Auto) 31.5 % 08/25/22 19:58 [place] % (Auto) 7.3 % 08/25/22 19:58 Eos % (Auto) 0.7 % 08/25/22 19:58 Baso % (Auto) 0.9 % 08/25/22 19:58 Neut # (Auto) 3.27 10^3/uL (1.8-7.7) 08/25/22 19:58 Lymph # (Auto) 1.7 10^3/uL (0.8-4.8) 08/25/22 19:58 [place] # (Auto) 0.4 10^3/uL (0.2-0.9) 08/25/22 19:58 Eos # (Auto) 0.0 10^3/uL (0.0-0.8) 08/25/22 19:58 Baso # (Auto) 0.1 10^3/uL (0.0-0.1) 08/25/22 19:58 Nucleated RBC % (auto) 0 % 08/25/22 19:58 Nucleated RBCs # 0.0 /100WBC 08/25/22 19:58 Sodium 138 mmol/L (136-145) 08/25/22 19:58 Potassium 4.1 mmol/L (3.5-5.1) 08/25/22 19:58 Chloride 103 mmol/L (98-107) 08/25/22 19:58 Carbon Dioxide 25 mmol/L (22-29) 08/25/22 19:58 Anion Gap 14.1 (5-19) 08/25/22 19:58 BUN 15 mg/dL (6-20) 08/25/22 19:58 Creatinine 0.7 mg/dL (0.5-0.9) 08/25/22 19:58 GFR Calculation 97.0 mL/min (90-130) 08/25/22 19:58 Glucose 98 mg/dL (65-115) 08/25/22 19:58 Calculated Osmolality 287 mOsm/kg (285-295) 08/25/22 19:58 Calcium 9.1 mg/dL (8.5-10.5) 08/25/22 19:58 Total Bilirubin 0.2 mg/dL (0.15-1.2) 08/25/22 19:58 AST 15 U/L (0-32) 08/25/22 19:58 ALT 15 U/L (0-33) 08/25/22 19:58 Alkaline Phosphatase 62 U/L (35-105) 08/25/22 19:58 Total Protein 7.8 g/dL (6.6-8.7) 08/25/22 19:58 Albumin 4.4 g/dL (3.5-5.2) 08/25/22 19:58 Globulin 3.4 g/dL (1.3-4.6) 08/25/22 19:58 Lipase 30 U/L (13-60) 08/25/22 19:58 HCG, Qual Negative (Negative) 08/25/22 19:58 Urine Color Colorless (Yellow) 08/25/22 19:58 Urine Appearance Clear (CLEAR) 08/25/22 19:58 Urine pH 7 (5-7) 08/25/22 19:58 Ur Specific Sheldon 1.005 (1.005-1.030) 08/25/22 19:58 Urine Protein Neg (Negative) 08/25/22 19:58 Urine Glucose (UA) Norm (Normal) 08/25/22 19:58 Urine Ketones Negative (Negative) 08/25/22 19:58 Urine Blood Neg (Negative) 08/25/22 19:58 Urine Nitrate Negative (Negative) 08/25/22 19:58 Urine Bilirubin Neg (Negative) 08/25/22 19:58 Urine Urobilinogen Norm mg/dL (Negative) 08/25/22 19:58 Ur Leukocyte Esterase Negative (Negative) 08/25/22 19:58 Discharge Plan Discharge Patient Disposition: Home Clinical Impression: Abdominal pain, Constipation Condition: Stable Prescriptions: New Protonix 40 mg tablet,delayed release (DR/EC) 40 mg PO DAILY Qty: 60 0RF Miralax 17 gram powder in packet 17 g PO DAILY PRN (Reason: constipation) Qty: 14 0RF No Action cyclobenzaprine 5 mg tablet 5 mg PO BID PRN (Reason: muscle spasm) 30 Days Qty: 30 1RF fluticasone propionate [Flonase Allergy Relief] 50 mcg/actuation spray,suspension 1 spray intranasal BID Qty: 18.2 0RF Rx Instructions: administer into each nostril tizanidine 2 mg tablet 2 mg PO Q8H PRN (Reason: muscle spasticity) 30 Days Qty: 60 0RF Discharge Orders: Discharge ED (Routine); Ordered 08/25/22 Ordered By: Maryjo Cerna Referrals: Mateus Carty MD [Physician] - 1-3 days Karime Marcelo MD [Primary Care Provider] - Discharge Diet: Advance as tolerated Discharge Activity: Resume usual activity Coding Level of Care Code ED Silviculturist for Chg Fwd Exam Comprehensive
[2022-08-25] MEDS: ondansetron 2 mg/ML SDV 2 mL 4 MG IVP (19:52)
[2022-08-25] MEDS: sodium chloride 0.9% 1,000 ML 999 ML IV (19:53)
[2022-08-25] MEDS: lidocaine 2% viscous 15 ML, aluminum-mag hydrox-simethicon 30 ML, sucralfate oral liq 1 GM PO (19:55)
[2022-08-25 20:06] LABS: Basophils # 0.1 10^3/uL (0.0-0.1); Basophils % 0.9 %; Eosinophils % 0.7 %; Hematocrit 39.2 % (37.0-47.0); Hemoglobin 12.6 g/dL (11.5-15.3); Lymphocytes # 1.7 10^3/uL (0.8-4.8); Lymphocytes % 31.5 %; Mean Corpuscular HGB Conc 32.1 g/dL (30.0-36.0); Mean Corpuscular Hemoglobin 28.3 pg (28.0-34.0); Mean Corpuscular Volume 87.9 fl (81-99); Mean Platelet Volume 10.8 fL (7.4-10.4); Monocytes # 0.4 10^3/uL (0.2-0.9); Monocytes % 7.3 %; Neutrophils # 3.27 10^3/uL (1.8-7.7); Neutrophils % 59.4 %; Nucleated Red Blood Cells % 0 %; Platelet Count 223 10^3/cmm (130-400); Red Blood Count 4.46 10^6/uL (4.1-5.3); White Blood Count 5.5 10^3/uL (4.0-10.0)
[2022-08-25 20:07] LABS: Add Urine Microscopic? NO; Charge for UA Resulting for Rev
[2022-08-25 20:09] LABS: Bilirubin Urine Neg (Negative); Blood Urine Neg (Negative); Glucose Urine UA Norm (Normal); Ketones Urine Negative (Negative); Leukocyte Esterase Urine Negative (Negative); Nitrate Urine Negative (Negative); Protein Urine Neg (Negative); Specific Gravity, Urine 1.005 (1.005-1.030); Urine Appearance Clear (CLEAR); Urine Color Colorless (Yellow); Urobilinogen Urine Norm (Negative); pH Urine 7 (5-7)
[2022-08-25 20:20] LABS: HCG, Serum Qual Negative (Negative)
[2022-08-25 20:23] VITALS: BP 116/78; PULSE 60; RESP 14; O2SAT 99
[2022-08-25 20:24] LABS: Alanine Aminotransferase 15 U/L (0-33); Albumin Level 4.4 g/dL (3.5-5.2); Alkaline Phosphatase 62 U/L (35-105); Anion Gap 14.1 (5-19); Aspartate Amino Transferase 15 U/L (0-32); Blood Urea Nitrogen 15 mg/dL (6-20); Calcium 9.1 mg/dL (8.5-10.5); Carbon Dioxide 25 mmol/L (22-29); Chloride 103 mmol/L (98-107); Globulin 3.4 g/dL (1.3-4.6); Glucose 98 mg/dL (65-115); Lipase 30 U/L (13-60); Osmolality Calculated 287 mOsm/kg (285-295); Potassium 4.1 mmol/L (3.5-5.1); Sodium 138 mmol/L (136-145); Total Bilirubin 0.2 mg/dL (0.15-1.2); Total Protein 7.8 g/dL (6.6-8.7)
[2022-08-25 21:45] VITALS: BP 107/67; RESP 14
--- NOTE | 2022-08-30 12:52 | DCPLANNER ---
Addendum entered by Margie Hurt 10/11/22 13:26: Patient had a follow up appointment scheduled with general surgery - patient did attend appointment. Addendum entered by Margie Hurt 09/08/22 14:08: Patient has a follow up appointment scheduled for Tuesday, September 20, 2022 at 11:[address] Stanley at general surgery. Clinic will call patient with appointment information. Original Note: business change manager had message to schedule a follow up appointment for patient with general surgery. business change manager sent patients information to the front office staff a general surgery. Patients information will be printed and reviewed. Clinic will call patient with appointment information.
== END 2022-08-25 21:39 | disposition home or self-care (01) ==
PROVIDERS: Emergency Provider Emergency Medicine; PCP Family Medicine
DX: K59.00 Constipation, unspecified (principal); Z87.891 Personal history of nicotine dependence
CPT/HCPCS: 74176; 80053; 81003; 83690; 84703; 85025; 96361; 96374; 99285; J2405; J7030

== ENCOUNTER 2022-09-26 08:23 | Day surgery (SDC) | payer OTHER, MEDICAID, SELFPAY ==
[2022-09-21 09:44] VITALS: BMI 29.7
[2022-09-26 08:41] VITALS: BP 139/85; PULSE 90; RESP 18; TEMP 36.9
[2022-09-26] MEDS: sodium chloride 0.9% 1,000 ML 30 ML IV (08:54)
[2022-09-26 09:04] LABS: OR HCG Qualitative Urine Negative (Negative)
--- NOTE | 2022-09-26 09:08 | P.HPUD_ITS ---
Surgery/Procedure H&P Update DATE OF PROCEDURE: September 26, 2022 DATE H&P PERFORMED: 09/20/22 PLANNED PROCEDURE: Operation Date: 09/26/22 09:45 Proposed Procedures p [id number] egd K21.9,R10.13(Not Applicable) - Shin Stanley DO
--- NOTE | 2022-09-26 09:08 | ANES.PREANE2 ---
Pre-Anesthetic Assessment Height/Weight: Height 1.7 m Weight 86.183 kg Temp Pulse Resp BP O2 Del Method 98.4 F 90 18 139/85 09/26/22 08:41 09/26/22 08:41 09/26/22 08:41 09/26/22 08:41 09/26/22 08:41 Preop Diagnosis: epigastric pain Operation Date: 09/26/22 09:45 Proposed Procedures p [id number] egd K21.9,R10.13(Not Applicable) - Shin Stanley DO Familial anesthetic complications: none Was Beta Masood taken within 24 hours: N/A Was Clonidine taken within 24 hours: N/A Last intake: Intake Last Liquid Date 09/25/22 Last Liquid Time 21:00 Last Solid Date 09/25/22 Last Solid Time 21:00 Social Alcohol (occasional) and No alcohol Exam alert, oriented x 3, clear to auscultation bilaterally and regular rate & rhythm Airway Submandibular: within normal limits Cervical ROM: within normal limits Mallampati: Class II Dentition: full Pulmonary None reported CV/HEM None reported Palpitations None reported Hepatic None reported GI Gastroesophageal Reflux Disease Metabolic None reported Musc/skel Lower Back Pain and Osteoarthritis/DJD Neuropsych Anxiety Anesthetic Plan ASA status: 2 Anesthesia: MAC Risk of > 500 ml blood loss (7ml/kg in children): No Medications/Allergies Home Medications Medication Instructions Recorded Confirmed Last Taken Type fluticasone propionate 50 1 spray intranasal BID #18.2 mL 12/06/21 09/26/22 1 Month Ago Rx mcg/actuation nasal ~08/26/22 spray,suspension (Flonase Allergy Relief) polyethylene glycol 3350 17 gram 17 g PO DAILY PRN constipation #14 08/25/22 09/21/22 09/14/22 Rx oral powder packet (Miralax) ea pantoprazole 40 mg tablet,delayed 40 mg PO BID 6 weeks #84 tabs 09/20/22 09/21/22 09/25/22 Rx release (Protonix) Allergies Allergy/AdvReac Type Severity Reaction Status Date / Time gabapentin Allergy Unknown Verified 09/21/22 09:42 Penicillins Allergy Unknown Verified 09/21/22 09:42 Current Medications Generic Name Dose Route Start Last Admin Trade Name Freq PRN Reason Stop Dose Admin Sodium Chloride 1,000 mls @ 30 mls/hr 09/26/22 08:30 09/26/22 08:54 Sodium Chloride 0.9% IV 09/27/22 08:29 30 mls/hr .Q24H SATISH Administration PFSH Anesthesia Medical History (Updated 09/20/22 @ 14:06 by Shin Stanley DO) Facial palsy GERD (gastroesophageal reflux disease) History of COVID-19 Social History Smoking and tobacco status: never smoked Alcohol intake: never Female Reproductive History Date of last menstrual period: 06/22/20 Spontaneous abortions: No Data Anesthesia Cardiac Studies: No Data to Display
--- NOTE | 2022-09-26 09:08 | W.PM.OPSUD ---
Surgery/Procedure H&P Update DATE OF PROCEDURE: September 26, 2022 DATE H&P PERFORMED: 09/20/22 PLANNED PROCEDURE: Operation Date: 09/26/22 09:45 Proposed Procedures p [id number] egd K21.9,R10.13(Not Applicable) - Shin Stanley DO
[2022-09-26 09:26] VITALS: BP 99/64; PULSE 68; RESP 16; TEMP 36.5; O2SAT 93
[2022-09-26 09:41] VITALS: BP 113/74; PULSE 67; RESP 18; O2SAT 94
--- NOTE | 2022-09-26 13:50 | ANE.PACU2 ---
Inpatient post-anesthesia follow up: Airway intact: Yes Vital signs: Temperature 97.7 F Pulse Rate 67 Respiratory Rate 18 Blood Pressure 113/74 Pulse Oximetry 94 Oxygen Delivery Me thod Room Air Oxygen Flow Rate Fraction of Inspir ed Oxygen Hydration adequate: Yes Nausea and vomiting: No Pain level: 1 Mental status: Baseline
== END 2022-09-26 09:57 | disposition home or self-care (01) ==
PROVIDERS: Anesthesiology; PCP Family Medicine; Visit Provider Surgery
PROC: 0DJ08ZZ Inspection of Upper Intestinal Tract, Via Natural or Artificial Opening Endoscopic (ICD-10-PCS; CPT 43235; principal; 2022-09-26 09:45)
DX: R10.13 Epigastric pain (principal); K21.9 Gastro-esophageal reflux disease without esophagitis; K29.50 Unspecified chronic gastritis without bleeding; B96.81 Helicobacter pylori [H. pylori] as the cause of diseases classified elsewhere; Z86.16 Personal history of COVID-19
CPT/HCPCS: 43239; 81025; 84703; 88305; 88342; J2704; J7030

== ENCOUNTER 2023-02-05 15:11 | Emergency (ER) | payer OTHER, MEDICAID, SELFPAY ==
[2023-02-05] VITALS (7 sets, daily range): BP systolic 114–136; BP diastolic 70–92; PULSE 61–98; RESP 16–20; TEMP 37.1; O2SAT 96–100
--- NOTE | 2023-02-05 16:44 | PC.NURSE ---
WHILE IN LOBBY WITH PT, PT IS IN NAD. PT DOES NOT VERBALIZE ANY NEEDS AT THIS TIME.
[2023-02-05] MEDS: ondansetron 2 mg/ML SDV 2 mL 4 MG IVP (18:05)
[2023-02-05] MEDS: morphine 4 mg/mL SDV 1 mL IVP (18:05)
--- NOTE | 2023-02-05 18:05 | ED_ITS ---
HPI - General Adult General: Chief complaint: General Medical Stated complaint: tremors, muscle pain, chilled Time Seen by Provider: 02/05/23 17:52 Source: patient Mode of arrival: ambulatory Limitations: no limitations History of Present Illness: 33-year-old female who states that she has been having chronic joint pain. She states that she did have this starting roughly 1 to 2 years ago and states it flares up she has been seen at [facility] for the last 2 weeks she was told she is hypothyroid was started on Synthroid but states continues to have pain in all her joints. 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 No vomiting no diarrhea no chest pain. Associated symptoms: Deny chest pain, dyspnea, headache(s), nausea, rash or vomiting Review of Systems Const: Reports: chills Eyes: Denies: blurry vision or eye discomfort ENMT: Denies: throat pain or dental pain Card: Denies: chest pain Resp: Denies: dyspnea GI: Denies: abdominal pain, nausea, vomiting or diarrhea : Denies: dysuria Musc: Reports: extremity pain and joint pain Skin/Breast: Denies: rash Neuro: Denies: headache(s) Psych: Denies: depression [place]/Lymph: Denies: easy bruising All/Imm: Denies: urticaria PFSH ED PFSH: Medical History Facial palsy GERD (gastroesophageal reflux disease) Helicobacter pylori gastritis History of COVID-19 Social History Smoking and tobacco status: never smoked Alcohol intake: never Female Reproductive History: Spontaneous abortions: No Physical Exam Const: COMMON NORMALS: no acute distress, patient oriented x3 and healthy appearing HENMT: COMMON NORMALS: normocephalic and atraumatic HEAD & SCALP: normocephalic and atraumatic Eye: COMMON NORMALS: Equal, round and reactive pupils present and EOMs intact bilaterally PUPIL: Yes Equal, round and reactive pupils present Neck/C-Spine: COMMON NORMALS: full ROM and supple Chest: COMMONS NORMALS: normal inspection of the chest and normal palpation of entire chest wall Resp: COMMON NORMALS: normal respiratory effort, No retractions, No use of accessory muscles and clear to auscultation bilaterally AUSCULTATION: clear to auscultation bilaterally Cardio: COMMON NORMALS: regular rate, regular rhythm and No murmurs present (Cardio) RATE: regular rate RHYTHM: regular rhythm GI: COMMON NORMALS: Normal to inspection, nondistended, normoactive bowel kasi nds present, Soft to palpation, non-tender and no masses PALPATION: Yes Soft to palpation Extremity: COMMON NORMALS: normal to inspection and full ROM Neuro: COMMON NORMALS: patient oriented x3, moves all extremities and no focal motor deficits OTHER: facial droop to right side from bells palsy Psych: COMMON NORMALS: mental status grossly normal, Normal thought process present and cooperative THOUGHT PROCESS: Normal thought process present Skin: COMMON NORMALS: no rashes or lesions noted and no wounds GENERAL SKIN EXAM: no rashes or lesions noted Course Vital Signs: Vital signs: Vital Signs Temperature 98.7 F 02/05/23 15:23 Pulse Rate 64 02/05/23 19:06 Respiratory Rate 16 02/05/23 19:06 Blood Pressure 123/88 02/05/23 19:06 Pulse Oximetry 99 02/05/23 19:06 Oxygen Delivery Me thod 02/05/23 16:44 MDM - General Adult Medical Decision Making Patient presents here with joint pain and muscle aches its been going on for months up to a year she is afebrile here white count is normal no signs of infectious cause she is concerned of Lyme's disease we will send a Lyme titer TSH is mildly elevated she did recently start Synthroid we will get her follow- up with rheumatology at this time she is stable for discharge she is return if worsening. Lab Data 02/05/23 17:57 02/05/23 17:57 Laboratory Results WBC 6.9 10^3/uL (4.0-10.0) 02/05/23 17:57 RBC 4.92 10^6/uL (4.1-5.3) 02/05/23 17:57 Hgb 13.8 g/dL (11.5-15.3) 02/05/23 17:57 Hct 42.5 % (37.0-47.0) 02/05/23 17:57 MCV 86.4 fl (81-99) 02/05/23 17:57 MCH 28.0 pg (28.0-34.0) 02/05/23 17:57 MCHC 32.5 g/dL (30.0-36.0) 02/05/23 17:57 RDW 13.6 % (12.1-15.1) 02/05/23 17:57 Plt Count 277 10^3/cmm (130-400) 02/05/23 17:57 MPV 11.0 fL (7.4-10.4) H 02/05/23 17:57 Neut % (Auto) 71.0 % 02/05/23 17:57 Lymph % (Auto) 21.8 % 02/05/23 17:57 [place] % (Auto) 5.8 % 02/05/23 17:57 Eos % (Auto) 0.7 % 02/05/23 17:57 Baso % (Auto) 0.6 % 02/05/23 17:57 Neut # (Auto) 4.86 10^3/uL (1.8-7.7) 02/05/23 17:57 Lymph # (Auto) 1.5 10^3/uL (0.8-4.8) 02/05/23 17:57 [place] # (Auto) 0.4 10^3/uL (0.2-0.9) 02/05/23 17:57 Eos # (Auto) 0.1 10^3/uL (0.0-0.8) 02/05/23 17:57 Baso # (Auto) 0.0 10^3/uL (0.0-0.1) 02/05/23 17:57 Nucleated RBC % (auto) 0 % 02/05/23 17:57 Nucleated RBCs # 0.0 /100WBC 02/05/23 17:57 Sodium 132 mmol/L (136-145) L 02/05/23 17:57 Potassium 4.1 mmol/L (3.5-5.1) 02/05/23 17:57 Chloride 97 mmol/L (98-107) L 02/05/23 17:57 Carbon Dioxide 27 mmol/L (22-29) 02/05/23 17:57 Anion Gap 12.1 (5-19) 02/05/23 17:57 BUN 9 mg/dL (6-20) 02/05/23 17:57 Creatinine 0.6 mg/dL (0.5-0.9) 02/05/23 17:57 GFR Calculation 115.1 mL/min (90-130) 02/05/23 17:57 Glucose 97 mg/dL (65-115) 02/05/23 17:57 Calculated Osmolality 273 mOsm/kg (285-295) L 02/05/23 17:57 Calcium 9.5 mg/dL (8.5-10.5) 02/05/23 17:57 Magnesium 1.9 mg/dL (1.7-2.3) 02/05/23 17:57 Total Bilirubin 0.4 mg/dL (0.15-1.2) 02/05/23 17:57 AST 14 U/L (0-32) 02/05/23 17:57 ALT 13 U/L (0-33) 02/05/23 17:57 Alkaline Phosphatase 52 U/L (35-105) 02/05/23 17:57 Creatine Kinase 48 U/L (26-192) 02/05/23 17:57 Total Protein 7.9 g/dL (6.6-8.7) 02/05/23 17:57 Albumin 5.1 g/dL (3.5-5.2) 02/05/23 17:57 Globulin 2.8 g/dL (1.3-4.6) 02/05/23 17:57 TSH 5.61 uIU/mL (0.27-4.20) H 02/05/23 17:57 HCG, Qual Negative (Negative) 02/05/23 17:57 Urine Color Yellow (Yellow) 02/05/23 17:57 Urine Appearance Clear (CLEAR) 02/05/23 17:57 Urine pH 5 (5-7) 02/05/23 17:57 Ur Specific [place] 1.010 (1.005-1.030) 02/05/23 17:57 Urine Protein Neg (Negative) 02/05/23 17:57 Urine Glucose (UA) Norm (Normal) 02/05/23 17:57 Urine Ketones Negative (Negative) 02/05/23 17:57 Urine Blood Neg (Negative) 02/05/23 17:57 Urine Nitrate Negative (Negative) 02/05/23 17:57 Urine Bilirubin Neg (Negative) 02/05/23 17:57 Urine Urobilinogen Norm mg/dL (Negative) 02/05/23 17:57 Ur Leukocyte Esterase Negative (Negative) 02/05/23 17:57 Discharge Plan Discharge Patient Disposition: Home Clinical Impression: Arthralgia, Parr's palsy, Hypothyroidism Condition: Stable Prescriptions: New hydrocodone-acetaminophen 5-325 mg tablet 1 tab PO Q6H PRN (Reason: pain) Qty: 14 0RF Naprosyn 500 mg tablet 500 mg PO BID PRN (Reason: pain) Qty: 20 0RF No Action fluticasone propionate [Flonase Allergy Relief] 50 mcg/actuation spray,suspen derrick 1 spray intranasal BID Qty: 18.2 0RF Rx Instructions: administer into each nostril pantoprazole [Protonix] 40 mg tablet,delayed release (DR/EC) 40 mg PO DAILY 42 Days Qty: 42 0RF clarithromycin 500 mg tablet 500 mg PO BID 14 Days Qty: 28 0RF metronidazole 500 mg tablet 500 mg PO TID 14 Days Qty: 42 0RF pantoprazole [Protonix] 40 mg tablet,delayed release (DR/EC) 40 mg PO BID 42 Days Qty: 84 0RF polyethylene glycol 3350 [Miralax] 17 gram powder in packet 17 g PO DAILY PRN (Reason: constipation) Qty: 14 0RF Discharge Orders: Discharge ED (Routine); Ordered 02/05/23 Ordered By: Maryjo Cerna Referrals: Elizabeth Morales MD [Physician] - 1-3 days Karime Marcelo MD [Primary Care Provider] - 1-3 days Discharge Diet: Advance as tolerated Discharge Activity: Resume usual activity Patient Instructions: Arthralgia (ED), Opioid Safety, Pain Management Coding Level of Care Code ED Mechanical Integrity Specialist for Omar Sullivan
[2023-02-05 18:07] LABS: Add Urine Microscopic? NO; Charge for UA Resulting for Rev
[2023-02-05 18:21] LABS: Bilirubin Urine Neg (Negative); Blood Urine Neg (Negative); Glucose Urine UA Norm (Normal); Ketones Urine Negative (Negative); Leukocyte Esterase Urine Negative (Negative); Nitrate Urine Negative (Negative); Protein Urine Neg (Negative); Urine Appearance Clear (CLEAR); Urine Color Yellow (Yellow); Urobilinogen Urine Norm (Negative); pH Urine 5 (5-7)
[2023-02-05 18:22] LABS: Basophils % 0.6 %; Eosinophils # 0.1 10^3/uL (0.0-0.8); Eosinophils % 0.7 %; Hematocrit 42.5 % (37.0-47.0); Hemoglobin 13.8 g/dL (11.5-15.3); Lymphocytes # 1.5 10^3/uL (0.8-4.8); Lymphocytes % 21.8 %; Mean Corpuscular HGB Conc 32.5 g/dL (30.0-36.0); Mean Corpuscular Volume 86.4 fl (81-99); Monocytes # 0.4 10^3/uL (0.2-0.9); Monocytes % 5.8 %; Neutrophils # 4.86 10^3/uL (1.8-7.7); Nucleated Red Blood Cells % 0 %; Platelet Count 277 10^3/cmm (130-400); Red Blood Count 4.92 10^6/uL (4.1-5.3); Red Cell Distribution Width 13.6 % (12.1-15.1); White Blood Count 6.9 10^3/uL (4.0-10.0)
[2023-02-05 18:28] LABS: HCG, Serum Qual Negative (Negative)
[2023-02-05 18:43] LABS: Alanine Aminotransferase 13 U/L (0-33); Albumin Level 5.1 g/dL (3.5-5.2); Alkaline Phosphatase 52 U/L (35-105); Anion Gap 12.1 (5-19); Aspartate Amino Transferase 14 U/L (0-32); Blood Urea Nitrogen 9 mg/dL (6-20); Calcium 9.5 mg/dL (8.5-10.5); Carbon Dioxide 27 mmol/L (22-29); Chloride 97 mmol/L (98-107); Creatine Phosphokinase 48 U/L (26-192); Globulin 2.8 g/dL (1.3-4.6); Glomerular Filtration Rate 115.1 mL/min (90-130); Glucose 97 mg/dL (65-115); Magnesium 1.9 mg/dL (1.7-2.3); Osmolality Calculated 273 mOsm/kg (285-295); Potassium 4.1 mmol/L (3.5-5.1); Sodium 132 mmol/L (136-145); Thyroid Stimulating Hormone 5.61 uIU/mL (0.27-4.20); Total Bilirubin 0.4 mg/dL (0.15-1.2); Total Protein 7.9 g/dL (6.6-8.7)
[2023-02-08 13:49] LABS: Lymes IGG WB <0.90 index
== END 2023-02-05 19:27 | disposition home or self-care (01) ==
PROVIDERS: Emergency Medicine; Emergency Provider Emergency Medicine; PCP Family Medicine
DX: M25.50 Pain in unspecified joint (principal); G51.0 Bell's palsy; E03.9 Hypothyroidism, unspecified
CPT/HCPCS: 36415; 80053; 81003; 82550; 83735; 84443; 84703; 85025; 86617; 96374; 96375; 99284; J2270; J2405

== ENCOUNTER → 2023-02-13 11:00 | Outpatient (BNVA) | payer OTHER, MEDICAID, SELFPAY | PROVIDERS: PCP Family Medicine; Visit Provider Family Medicine | DX: E03.9 Hypothyroidism, unspecified (principal); R52 Pain, unspecified | CPT/HCPCS: 80053; 84439; 84443; 84481; 85025; 85651; 86038; 86140 ==

== ENCOUNTER → 2023-03-13 14:24 | Outpatient (BNVA) | payer OTHER, MEDICAID, SELFPAY | PROVIDERS: PCP Family Medicine; Visit Provider Family Medicine | DX: E03.9 Hypothyroidism, unspecified (principal); D49.6 Neoplasm of unspecified behavior of brain; G25.2 Other specified forms of tremor; G52.9 Cranial nerve disorder, unspecified; F41.1 Generalized anxiety disorder; G47.01 Insomnia due to medical condition; R52 Pain, unspecified; E07.89 Other specified disorders of thyroid; R13.10 Dysphagia, unspecified; M62.838 Other muscle spasm; Z74.09 Other reduced mobility; Z78.9 Other specified health status | CPT/HCPCS: 84439; 84443; 84481 ==

== ENCOUNTER 2023-03-14 10:16 | Outpatient (CLI) | payer OTHER, MEDICAID, SELFPAY ==
--- NOTE | 2023-03-14 10:00 | US_ITS ---
WS: [id number] THYROID ULTRASOUND HISTORY: E03.9 - Hypothyroidism, unspecified COMPARISON: None available. Right lobe: 1.3 cm x 1.1 cm x 5.1 cm (w x ap x l). Volume: 3.8 cm3. Normal size and echotexture. No significant are dominant nodules are present. Left lobe: 1.1 cm x 1.0 cm x 4.1 cm (w x ap x l). Volume: 2.2 cm3. Normal size and echotexture. No significant or dominant nodules are present. Isthmus: 0.1 cm. US/US thyroid [id number] IMPRESSION: Normal thyroid ultrasound.
== END 2023-03-14 10:17 | disposition home or self-care (01) ==
LOC: RAD 10:22
PROVIDERS: PCP Family Medicine; Visit Provider Family Medicine
DX: E03.9 Hypothyroidism, unspecified (principal)
CPT/HCPCS: 76536

== ENCOUNTER 2023-03-20 11:47 | Outpatient (CLI) | payer OTHER, MEDICAID, SELFPAY ==
--- NOTE | 2023-03-20 11:45 | MR_ITS ---
WS: [id number] MRI BRAIN WITH AND WITHOUT CONTRAST HISTORY: D49.6 - Neoplasm of unspecified behavior of brain, history of known brain neoplasm. COMPARISON: Prior MRI 01/24/2022. Prior CT 03/25/2022 TECHNIQUE: Multiplanar imaging performed through the brain with MultiHance 18 ml's IV. No evidence for an acute infarct. Diffusion imaging is normal. Again identified is the T2 hyperintens e lesion centered in the RIGHT middle cerebellar peduncle involving the RIGHT baldev and brainstem. The re is involvement into the RIGHT cerebellopontine angle. There is slight mass effect and extension to the midline structures but no midline shift or obstructive process. Mass measures1.6 cm anterior pos terior x 1.5 cm transverse x 1.7 cm craniocaudad. Measurements are similar to the prior study. Fourth ventricle remains patent. No susceptibility artifacts or prior lacunar infarcts. Ventricles and extra-axial spaces are normal. No obstructive hydrocephalus. Clivus and pituitary gland are normal. Mass centered at the RIGHT is reidentified with no enhancement. No enhancing masses are identified wi thin the brain. Dural venous sinuses are normal. Paranasal sinuses: Well aerated with no significant disease. Mastoid air cells: Normal. Calvarium and scalp: Normal. MR/MR head wo/w con [id number] IMPRESSION: 1. Stable, nonenhancing mass centered in the RIGHT cerebellar peduncle as prev iously described on 01/24/2022. Mass extends to involve the RIGHT baldev and brain stem and extends into the base of the 7th and 8th cranial nerve complex. No int erval change since the prior study. By history patient has a known brainstem gl ioma. 2. RIGHT cerebellar peduncle mass extends to the midline. There is no obstruct charity hydrocephalus. 3. No hemorrhage.
[2023-03-20] MEDS: gadobenate dimeglumine 20 mL vial IV (12:53)
== END 2023-03-20 11:48 | disposition home or self-care (01) ==
PROVIDERS: PCP Family Medicine; Visit Provider Family Medicine
DX: D49.6 Neoplasm of unspecified behavior of brain (principal)
CPT/HCPCS: 70553; A9577

== ENCOUNTER 2023-05-15 08:27 | Outpatient (CLI) | payer OTHER, MEDICAID, SELFPAY ==
--- NOTE | 2023-05-15 08:38 | FL_ITS ---
WS: [id number] Exam: FL barium swallow modifd [id number] Date/Time of Exam: 05/15/2023 9:11 AM Reason For Exam: Other dysphagia Fluoroscopy time: 2min [id number] minutes # of spot films: Modified barium swallow was performed in conjunction with the speech therapy service. The patient experienced minimal difficulty initiating the swallowing process at the level of the orop harynx. The patient tolerated all consistencies of barium mixture foodstuffs without aspiration or pe netration. The patient ingested a barium tablet without difficulty or complication. FL/FL barium swallow modifd [id number] IMPRESSION: 1. The patient experienced minimal difficulty initiating the swallowing process at the level of the oropharynx. No aspiration or penetration was noted. A separate report and recommendations will follow from the speech therapy servi ce.
--- NOTE | 2023-05-15 08:38 | CT_ITS ---
WS: [id number] CT NECK TECHNIQUE: Noncontrast CT of the neck with coronal and sagittal reformatted images. CLINICAL INFORMATION: IDIOPATHIC URTICARIA/DYSPHAGIA COMPARISON: None. DLP: 169.[address] scans at [facility] use at least one of these dose optimization techniques: automated e xposure control; mA and/or kV adjustment per patient size (includes targeted exams where dose is matc hed to clinical indication); or iterative reconstruction. FINDINGS: Normal visualized posterior fossa. Parotid glands are normal. Normal submandibular glands. A few tiny tonsillar calcifications. Normal posterior nasopharynx. Normal parapharyngeal fat. Mastoid air cells are well aerated. Paranasal sinuses appear well aerated. Small amount of fluid in the RIGHT maxillar y sinus. Normal vallecula and piriform sinuses. No evidence of supraglottic or glottic mass. Normal subglottic airway. Lung apices are well aerated. Normal cervical spine. No cervical lymphadenopathy. CT/CT neck wo con [id number] IMPRESSION: 1. Normal noncontrast neck CT 2. Normal salivary glands. 3. No evidence of supraglottic or glottic mass. 4. Trace fluid in the RIGHT maxillary sinus.
== END 2023-05-15 08:28 | disposition home or self-care (01) ==
PROVIDERS: PCP Family Medicine; Visit Provider Specialist
DX: R13.19 Other dysphagia (principal); L50.1 Idiopathic urticaria
CPT/HCPCS: 70490; 74230; 92611

== ENCOUNTER → 2023-07-10 09:04 | Outpatient (BNVA) | payer OTHER, MEDICAID, SELFPAY | PROVIDERS: PCP Family Medicine; Visit Provider Family Medicine | DX: S93.421A Sprain of deltoid ligament of right ankle, initial encounter (principal); E03.9 Hypothyroidism, unspecified; Z13.220 Encounter for screening for lipoid disorders; Z13.6 Encounter for screening for cardiovascular disorders; X58.XXXA Exposure to other specified factors, initial encounter | CPT/HCPCS: 73600; 80053; 80061; 84439; 84481 ==

== ENCOUNTER → 2023-07-17 09:46 | Outpatient (BNVA) | payer OTHER, MEDICAID, SELFPAY | PROVIDERS: PCP Family Medicine; Visit Provider Family Medicine | DX: E03.9 Hypothyroidism, unspecified (principal) | CPT/HCPCS: 84443 ==

== ENCOUNTER → 2023-08-14 09:50 | Outpatient (BNVA) | payer OTHER, MEDICAID, SELFPAY | PROVIDERS: PCP Family Medicine; Referring Provider Family Medicine; Visit Provider Family Medicine | DX: E03.9 Hypothyroidism, unspecified (principal); I10 Essential (primary) hypertension; M79.10 Myalgia, unspecified site; R25.1 Tremor, unspecified; R63.5 Abnormal weight gain | CPT/HCPCS: 80061; 83036; 84439; 84443; 84481 ==